=== PATIENT | male | born 1960 | race Caucasian/White ===

== ENCOUNTER 2022-10-19 23:52 | Emergency (ER) | payer OTHER ==
[~2022-10-19] VITALS: Ht 188 cm; Wt 88.6 kg
[2022-10-20] MEDS ORDERED: AMIT-166 PO (00:25)
[2022-10-20 00:41] LABS: BASOPHILS % (AUTO) 0.7 % (0.0-2.0); EOSINOPHILS % (AUTO) 3.2 % (1.0-6.0); HEMOGLOBIN 11.3 g/dL (13.5-17.5); LYMPHOCYTES # (AUTO) 1.2 K/uL (1.0-4.8); LYMPHOCYTES % (AUTO) 18.8 % (22.0-44.0); MEAN CORPUSCULAR HEMOGLOBIN 30.7 pg (26.0-34.0); MEAN CORPUSCULAR HGB CONC 33.3 G/dL (31.0-37.0); MEAN CORPUSCULAR VOLUME 92 fL (80-100); MONOCYTES # (AUTO) 0.8 K/uL (0.1-1.0); MONOCYTES % (AUTO) 11.9 % (2.0-9.0); NEUTROPHILS # (AUTO) 4.3 K/uL (1.8-7.7); NEUTROPHILS % (AUTO) 65.4 % (40.0-70.0); PLATELET COUNT (AUTO) 227 K/uL (150-450); RED BLOOD CELL COUNT(AUTO) 3.69 MIL/uL (4.50-5.90); RED CELL DISTRIBUTION WIDTH 14.3 % (11.5-14.5)
[2022-10-20 00:52] LABS: ANION GAP 6 mmol/L (8-16); CARBON DIOXIDE 29 mmol/L (22-29); CHLORIDE 97 mmol/L (98-107); CREATININE 0.88 mg/dL (0.60-1.30); GLUCOSE,RANDOM 107 mg/dL (70-110); SODIUM SERUM 132 mmol/L (136-145); UREA NITROGEN, BLOOD 13 mg/dL (7-18)
[2022-10-20 00:53] LABS: CALCIUM, TOTAL 8.7 mg/dL (8.8-10.5); GLOMERULAR FILTR. RATE CALC > 60 mL/min (>60)
[2022-10-20 00:57] LABS: ALANINE AMINOTRANSFERASE 19 U/L (12-78); ALBUMIN 3.8 g/dL (3.4-5.0); ALKALINE PHOSPHATASE 79 U/L (46-116); ASPARTATE AMINOTRANSFERASE 22 U/L (15-37); BILIRUBIN,TOTAL 0.7 mg/dL (0.1-1.0); LIPASE 100 U/L (73-393); TOTAL PROTEIN, SERUM 7.8 g/dL (6.4-8.2)
[2022-10-20 01:36] LABS: APPEARANCE,URINE CLEAR (CLEAR); SPECIFIC GRAVITIY, URINE 1.015 (1.003-1.030)
[2022-10-20 01:38] LABS: BILIRUBIN,URINE NEGATIVE (NEGATIVE); GLUCOSE, URINE (UA) NEGATIVE (NEGATIVE); KETONES,URINE NEGATIVE (NEGATIVE); LEUKOCYTE ESTERASE ,URINE SMALL (NEGATIVE); NITRATE,URINE NEGATIVE (NEGATIVE); OCCULT BLOOD,URINE SMALL (NEGATIVE); PROTEIN,URINE NEGATIVE (NEGATIVE); UROBILINOGEN,URINE <=1.0 mg/dL (<=1.0)
[2022-10-20 01:39] LABS: BACTERIA,URINE Rare /HPF (None Seen); RBC,URINE 0-2 /HPF (0-2); SQUAMOUS EPITHELIAL CELL,UR Rare /LPF (None Seen)
[2022-10-20] MEDS ORDERED: ACETAMINOPHEN 500 MG TABLET PO ONE (04:45)
[2022-10-20] MEDS ORDERED: KETOROLAC TROMETHAMINE 30 MG/ML VIAL IVP ONE (04:45)
[2022-10-20] MEDS ORDERED: IOHEXOL 350 MG/ML 100 ML VIAL ONE (04:55)
[2022-10-20] MEDS ORDERED: SODIUM CHLORIDE 0.9% 100 ML ONE (04:55)
[2022-10-20 09:53] VITALS: BP 132/85
== END 2022-10-20 09:59 | disposition home or self-care (01) ==
LOC: EMS 23:54
DX: R30.0 Dysuria (principal); F32.A Depression, unspecified; Z98.890 Other specified postprocedural states
CPT/HCPCS: 99285; 80053; 81001; 83690; 85025; 36415; 74177; 96374; J1885; Q9967; J7050; 99284

== ENCOUNTER 2023-03-10 11:52 | Emergency (ER) | payer OTHER ==
[~2023-03-10] VITALS: Ht 185.4 cm; Wt 88.2 kg
[~2023-03-10 11:52] MED LIST: AMIT-166 PO
[2023-03-10 11:53] VITALS: TEMP 98.4
[2023-03-10 12:41] LABS: BASOPHILS % (AUTO) 0.6 % (0.0-2.0); EOSINOPHILS % (AUTO) 2.9 % (1.0-6.0); HEMOGLOBIN 13.4 g/dL (13.5-17.5); LYMPHOCYTES # (AUTO) 0.8 K/uL (1.0-4.8); LYMPHOCYTES % (AUTO) 7.2 % (22.0-44.0); MEAN CORPUSCULAR HEMOGLOBIN 31.2 pg (26.0-34.0); MEAN CORPUSCULAR HGB CONC 33.5 G/dL (31.0-37.0); MEAN CORPUSCULAR VOLUME 93 fL (80-100); MONOCYTES % (AUTO) 9.7 % (2.0-9.0); NEUTROPHILS # (AUTO) 8.5 K/uL (1.8-7.7); NEUTROPHILS % (AUTO) 79.6 % (40.0-70.0); PLATELET COUNT (AUTO) 214 K/uL (150-450); RED BLOOD CELL COUNT(AUTO) 4.29 MIL/uL (4.50-5.90); RED CELL DISTRIBUTION WIDTH 13.7 % (11.5-14.5)
[2023-03-10 12:52] LABS: ANION GAP 7 mmol/L (8-16); CALCIUM, TOTAL 8.7 mg/dL (8.8-10.5); CARBON DIOXIDE 25 mmol/L (22-29); CHLORIDE 98 mmol/L (98-107); GLOMERULAR FILTR. RATE CALC > 60 mL/min (>60); GLUCOSE,RANDOM 111 mg/dL (70-110); POTASSIUM 3.9 mmol/L (3.5-5.1); SODIUM SERUM 130 mmol/L (136-145)
[2023-03-10 12:59] LABS: ALANINE AMINOTRANSFERASE 21 U/L (12-78); ALBUMIN 3.7 g/dL (3.4-5.0); ALKALINE PHOSPHATASE 76 U/L (46-116); ASPARTATE AMINOTRANSFERASE 20 U/L (15-37); BILIRUBIN,TOTAL 0.7 mg/dL (0.1-1.0); LIPASE 68 U/L (73-393); TOTAL PROTEIN, SERUM 7.4 g/dL (6.4-8.2)
[2023-03-10] MEDS ORDERED: ONDANSETRON HCL 4 MG/2 ML VIAL IVP ONE (16:00)
[2023-03-10] MEDS ORDERED: SODIUM CHLORIDE 0.9% 1,000 ML IV ONE (16:00)
[2023-03-10] MEDS ORDERED: KETOROLAC TROMETHAMINE 30 MG/ML VIAL IVP ONE (16:00)
[2023-03-10 16:37] LABS: APPEARANCE,URINE CLEAR (CLEAR); BILIRUBIN,URINE NEGATIVE (NEGATIVE); GLUCOSE, URINE (UA) NEGATIVE (NEGATIVE); KETONES,URINE NEGATIVE (NEGATIVE); LEUKOCYTE ESTERASE ,URINE NEGATIVE (NEGATIVE); NITRATE,URINE NEGATIVE (NEGATIVE); OCCULT BLOOD,URINE SMALL (NEGATIVE); PH,URINE 6.5 (5.0-8.0); PROTEIN,URINE NEGATIVE (NEGATIVE); UROBILINOGEN,URINE <=1.0 mg/dL (<=1.0)
[2023-03-10 17:18] LABS: RBC,URINE 0-2 /HPF (0-2); WBC,URINE 0-2 /HPF (0-5)
[2023-03-10 17:19] LABS: BACTERIA,URINE None Seen /HPF (None Seen)
[2023-03-10 19:03] VITALS: BP 154/78; PULSE 81; RESP 17
[2023-03-10] MEDS ORDERED: IBUP-1492 PO (19:29)
[2023-03-10] MEDS ORDERED: SULF-261 PO (19:29)
[2023-03-10] MEDS ORDERED: METR500 PO (19:29)
== END 2023-03-10 20:14 | disposition home or self-care (01) ==
LOC: EMS 12:52
DX: K57.92 Diverticulitis of intestine, part unspecified, without perforation or abscess without bleeding (principal); F32.A Depression, unspecified; Z98.890 Other specified postprocedural states
CPT/HCPCS: 99285; 74176; 96374; 96361; 96375; 80053; 81001; 83690; 85025; 36415; J1885; J2405; J7030

== ENCOUNTER 2024-11-03 16:29 | Emergency (ER) | payer OTHER ==
[~2024-11-03] VITALS: Ht 177.8 cm; Wt 81.8 kg
[~2024-11-03 16:29] MED LIST changes: -AMIT-166 PO; +AMIT10TA7 PO; +IBUP-1492 PO; +METR500 PO; +SULF-261 PO
[2024-11-03 16:34] VITALS: TEMP 98.9
[2024-11-03] MEDS ORDERED: LOSA-381 PO (16:35)
[2024-11-03] MEDS ORDERED: ATOR20TA PO (16:35)
[2024-11-03 16:42] LABS: COVID AG,FIA SOURCE NASAL SWAB
[2024-11-03 17:00] LABS: INFLUENZA TYPE A NEGATIVE FOR TYPE A (NEGATIVE); INFLUENZA TYPE B NEGATIVE FOR TYPE B (NEGATIVE); SARS-COV2 (COVID) ANTIGEN,FIA Negative (Negative)
[2024-11-03] MEDS ORDERED: BENZ-227 PO (17:19)
[2024-11-03] MEDS ORDERED: AZIT250T9 PO (17:19)
[2024-11-03 17:30] VITALS: BP 133/84; PULSE 81; RESP 17; O2SAT 99
== END 2024-11-03 17:38 | disposition home or self-care (01) ==
LOC: EMS 16:29
DX: J18.0 Bronchopneumonia, unspecified organism (principal); F41.9 Anxiety disorder, unspecified; F32.A Depression, unspecified; E78.00 Pure hypercholesterolemia, unspecified; I10 Essential (primary) hypertension; Z79.899 Other long term (current) drug therapy; Z85.46 Personal history of malignant neoplasm of prostate; Z20.822 Contact with and (suspected) exposure to COVID-19
CPT/HCPCS: 87804; 99283

== ENCOUNTER 2025-05-01 05:39 | Emergency (ER) | payer OTHER ==
[~2025-05-01] VITALS: Ht 185.4 cm; Wt 98.2 kg
[~2025-05-01 05:39] MED LIST changes: +AMIT10TA14 PO; -AMIT10TA7 PO; +ATOR20TA PO; +BENZ-227 PO; -IBUP-1492 PO; +LOSA-381 PO; -METR500 PO; -SULF-261 PO
[2025-05-01] MEDS ORDERED: 0.9% SODIUM CHLORIDE 10 ML SYRINGE IVP PRN (06:00)
[2025-05-01] MEDS: ACETAMINOPHEN 1000 MG/ISO-OSM 100 ML IV ONE (06:13)
[2025-05-01] MEDS: CefTRIAXone 1 GM/DEXTROSE 50 ML IV ONE (06:13)
[2025-05-01] MEDS: SODIUM CHLORIDE 0.9% 2,950 ML IV ONE (06:14)
[2025-05-01 06:18] LABS: COVID AG,FIA SOURCE NASAL SWAB
[2025-05-01 06:20] LABS: PLATELET COUNT (AUTO) 125 K/uL (150-450); RED BLOOD CELL COUNT(AUTO) 4.74 MIL/uL (4.50-5.90); RED CELL DISTRIBUTION WIDTH 13.5 % (11.5-14.5); WHITE BLOOD COUNT (AUTO) 5.1 K/uL (4.5-11.0)
[2025-05-01 06:39] LABS: CALCIUM, TOTAL 8.2 mg/dL (8.8-10.5); CREATININE 1.10 mg/dL (0.60-1.30); GLOMERULAR FILTR. RATE CALC > 60 mL/min (>60); GLUCOSE,RANDOM 110 mg/dL (70-110); SODIUM SERUM 131 mmol/L (136-145); UREA NITROGEN, BLOOD 10 mg/dL (7-18)
[2025-05-01 06:46] LABS: LACTIC ACID 1.2 mmol/L (0.4-2.0)
[2025-05-01 06:48] LABS: INFLUENZA TYPE A NEGATIVE FOR TYPE A (NEGATIVE); INFLUENZA TYPE B NEGATIVE FOR TYPE B (NEGATIVE)
[2025-05-01 06:49] LABS: SARS-COV2 (COVID) ANTIGEN,FIA Negative (Negative)
[2025-05-01 08:29] LABS: APPEARANCE,URINE CLEAR (CLEAR); GLUCOSE, URINE (UA) NEGATIVE (NEGATIVE); LEUKOCYTE ESTERASE ,URINE NEGATIVE (NEGATIVE); NITRATE,URINE NEGATIVE (NEGATIVE); OCCULT BLOOD,URINE SMALL (NEGATIVE); SPECIFIC GRAVITIY, URINE 1.008 (1.003-1.030)
[2025-05-01 08:48] LABS: SQUAMOUS EPITHELIAL CELL,UR Rare /LPF (None Seen)
[2025-05-01 09:30] LABS: TROPONIN I-HIGH SENSITIVITY 8 ng/L (<76)
[2025-05-01 09:35] LABS: ASPARTATE AMINOTRANSFERASE 27.0 U/L (15-37); TOTAL PROTEIN, SERUM 7.5 g/dL (6.4-8.2)
[2025-05-01] MEDS ORDERED: BENZ-227 PO (11:55)
[2025-05-01] MEDS ORDERED: AZIT250T9 PO (11:55)
[2025-05-01 11:56] VITALS: BP 142/68; PULSE 81; RESP 18; TEMP 98.1; O2SAT 97
== END 2025-05-01 12:13 | disposition home or self-care (01) ==
LOC: EMS 05:39
DX: J98.4 Other disorders of lung (principal); E78.00 Pure hypercholesterolemia, unspecified; F32.A Depression, unspecified; F41.9 Anxiety disorder, unspecified; I10 Essential (primary) hypertension; Z85.46 Personal history of malignant neoplasm of prostate; Z79.899 Other long term (current) drug therapy; Z98.890 Other specified postprocedural states; Z20.822 Contact with and (suspected) exposure to COVID-19
CPT/HCPCS: 99285; 96365; 96361; 71045; 96375; 87426; 80048; 80076; 81001; 83605; 84484; 85025; 85610; 87040; 87804; 93005; 84145; 36415; J0696; J0131

== ENCOUNTER 2025-08-22 01:34 | Emergency (ER) | payer OTHER ==
[~2025-08-22] VITALS: Ht 185.4 cm; Wt 100.0 kg
[2025-08-22] MEDS: IBUPROFEN 400 MG TABLET PO ONE (03:15)
[2025-08-22] MEDS: ACETAMINOPHEN 500 MG TABLET PO ONE (03:15)
[2025-08-22 03:54] VITALS: BP 137/85; PULSE 89; RESP 18; TEMP 98.3; O2SAT 96
== END 2025-08-22 04:02 | disposition home or self-care (01) ==
LOC: EMS 01:34
DX: B37.2 Candidiasis of skin and nail (principal); L30.9 Dermatitis, unspecified; L98.8 Other specified disorders of the skin and subcutaneous tissue; E78.00 Pure hypercholesterolemia, unspecified; F32.A Depression, unspecified; I10 Essential (primary) hypertension; F41.9 Anxiety disorder, unspecified; Z85.46 Personal history of malignant neoplasm of prostate; Z79.899 Other long term (current) drug therapy
CPT/HCPCS: 99283